=== PATIENT | female | born 1985 | race Caucasian/White ===

== ENCOUNTER → 2025-02-20 14:28 | Outpatient (REF) | payer BC, SELFPAY | LOC: HWRAD 14:28 | DX: N92.6 Irregular menstruation, unspecified (principal) | CPT/HCPCS: 76830; 76856 ==

== ENCOUNTER → 2025-04-07 18:49 | Outpatient (REF) | payer BC, SELFPAY | LOC: WDC 18:49 | DX: Z12.31 Encounter for screening mammogram for malignant neoplasm of breast (principal) | CPT/HCPCS: 77063; 77067 ==